=== PATIENT | male | born 1980 | race Native Hawaiian/Other Pacific Islander ===

== ENCOUNTER 2023-07-18 07:47 | Emergency (ER) | payer OTHER ==
[~2023-07-18] VITALS: Ht 177.8 cm; Wt 149.7 kg
[2023-07-18 07:51] VITALS: BP 177/105; TEMP 98.5
[2023-07-18 08:40] LABS: PLATELET COUNT 234 K/uL (142-355)
== END 2023-07-18 08:40 | disposition home or self-care (01) ==
LOC: ED 07:47
PROVIDERS: Family Medicine
DX: R51.9 Headache, unspecified (principal); R09.81 Nasal congestion; R05.9 Cough, unspecified; J02.9 Acute pharyngitis, unspecified; U07.1 COVID-19; J06.9 Acute upper respiratory infection, unspecified; I10 Essential (primary) hypertension; G47.30 Sleep apnea, unspecified; F17.210 Nicotine dependence, cigarettes, uncomplicated
CPT/HCPCS: 85007; 85027; 87502; 87635; 87651; 99283; U0003